=== PATIENT | female | born 1990 | race American Indian/Alaskan Native ===

== ENCOUNTER 2021-05-14 16:03 | Emergency (ER) | payer MEDICAID ==
[2021-05-14 16:28] VITALS: BP 126/66; PULSE 100
[2021-05-14] MEDS ORDERED: Acetaminophen 325 MG Tab PO ONE (16:50)
[2021-05-14] MEDS ORDERED: Benzonatate 100 MG Cap PO ONE (16:50)
[2021-05-14 17:37] LABS: CORONAVIRUS COVID-19 NAA NEGATIVE (NEGATIVE); RESPIRATORY SYNCYTIAL VIR NAA NEGATIVE (NEGATIVE)
[2021-05-14] MEDS ORDERED: Lidocaine 5% Oint 35.44 GM Tube TOP ONE (17:49)
--- NOTE | 2021-05-14 17:56 | EDM.PDOC ---
Scribed by Josefina Paul 05/14/21 4023 for Rogerio Valles MD ED HPI GENERAL MEDICAL PROBLEM - General Chief Complaint: Respiratory Problem Stated Complaint: FRACTURED RIB FROM COUGHING Time Seen by Provider: 05/14/21 16:41 Source of Information: Reports: Patient, RN, RN Notes Reviewed History Limitations: Reports: No Limitations - History of Present Illness INITIAL COMMENTS - FREE TEXT/NARRATIVE: Patient presents to ED by POV stating she has had a cough and runny nose for a week. She coughed so hard she thinks she may broken a rib on the left. She states she is about 4 months and has not had OB care yet. She had some spotting yesterday but it stopped. Denies any related complaints at this time. She plans on seeing an OB doctor next week. Onset: Gradual Duration: Constant Location: Reports: Chest Severity: Severe Improves with: Reports: None Worsens with: Reports: None Associated Symptoms: Reports: No Other Symptoms Left Pain Score (Numeric/FACES): 6 - Related Data Allergies Allergy/AdvReac Type Severity Reaction Status Date / Time No Known Allergies Allergy Verified 05/14/21 16:28 Home Meds: Home Meds . [No Known Home Meds] 05/14/21 [History] Past Medical History - Past Health History Medical/Surgical History: Denies Medical/Surgical History HEENT History: Reports: None Cardiovascular History: Reports: Other (See Below) Other Cardiovascular History: hx gestational htn Respiratory History: Reports: Asthma Gastrointestinal History: Reports: None Genitourinary History: Reports: STD BELT TURNER History: Reports: , Other (See Below) Other BELT TURNER History: hx abnormal pap smear Musculoskeletal History: Reports: None Neurological History: Reports: Seizure Psychiatric History: Reports: Addiction, Anxiety 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 Endocrine/Metabolic History: Reports: None Hematologic History: Reports: Anemia Immunologic History: Reports: None Oncologic (Cancer) History: Reports: None Dermatologic History: Reports: None - Infectious Disease History Infectious Disease History: Reports: None, Chicken Pox - Past Surgical History Head Surgeries/Procedures: Reports: None Social & Family History - Tobacco Use Tobacco Use Status *Q: Current Every Day Tobacco User Years of Tobacco use: 2 Packs/Tins Daily: 0.5 Second Hand Smoke Exposure: No - Caffeine Use Caffeine Use: Reports: None - Recreational Drug Use Recreational Drug Use: No ED ROS GENERAL - Review of Systems Review Of Systems: Comprehensive ROS is negative, except as noted in HPI. ED EXAM, GENERAL - Physical Exam Exam: See Below Exam Limited By: No Limitations General Appearance: Alert, WD/WN, No Apparent Distress Eye Exam: Bilateral Eye: Normal Inspection Ears: Normal External Exam, Normal Canal, Hearing Grossly Normal, Normal TMs Nose: Nasal Drainage (Clear) Throat/Mouth: Normal Inspection, Normal Lips, Normal Teeth, Normal Gums, Normal Oropharynx, Normal Voice, No Airway Compromise Head: Atraumatic, Normocephalic Neck: Normal Inspection, Supple, Non-Tender, Full Range of Motion. No: Lymphadenopathy (L), Lymphadenopathy (R) Respiratory/Chest: No Respiratory Distress, Lungs Clear, Normal Breath Sounds, No Accessory Muscle Use, Other (Harsh dry cough. Tender to palpation overlying left anterior chest wall.) Cardiovascular: Regular Rate, Rhythm GI/Abdominal: Normal Bowel Sounds, Soft, Non-Tender, Other (Gravid). No: Guarding, Rigid, Rebound Back Exam: Normal Inspection. No: CVA Tenderness (L), CVA Tenderness (R) Extremities: Normal Inspection Neurological: Alert, Oriented, No Motor/Sensory Deficits Psychiatric: Normal Mood Skin Exam: Warm, Dry, Intact, Normal Color, No Rash Course - Vital Signs Last Recorded V/S: Last Vital Signs Temp 97.2 F 05/14/21 16:20 Pulse 100 05/14/21 16:20 Resp 16 05/14/21 16:20 BP 126/66 05/14/21 16:20 Pulse Ox 99 05/14/21 16:20 - Orders/Labs/Meds Orders: Active Orders 24 hr Category Date Time Status Heart Tones [RC] ASDIRECTED Care 05/14/21 16:50 Active Labs: Laboratory Tests 05/14/21 Range/Units 16:45 Influenza Type A RNA Negative (NEGATIVE) RSV RNA (INAAT) Negative (NEGATIVE) Influenza Type B RNA Negative (NEGATIVE) SARS-CoV-2 RNA (CATHY) Negative (NEGATIVE) Meds: Medications Discontinued Medications Generic Name Dose Route Start Last Admin Trade Name Freq PRN Reason Stop Dose Admin Acetaminophen 650 mg 05/14/21 16:50 Acetaminophen 325 Mg Tab PO 05/14/21 16:51 NOW ONE Benzonatate 200 mg 05/14/21 16:50 Benzonatate 100 Mg Cap PO 05/14/21 16:51 ONETIME ONE Departure - Departure Time of Disposition: 17:51 Disposition: Home, Self-Care 01 Condition: Good Clinical Impression: Viral URI with cough - Discharge Information *PRESCRIPTION DRUG MONITORING PROGRAM REVIEWED*: No *COPY OF PRESCRIPTION DRUG MONITORING REPORT IN PATIENT NURY: No Instructions: Viral Respiratory Infection, [id number], Cough, Adult, [id number], Care, Costochondritis Forms: ED Department Discharge Additional Instructions: Rx: Tessalon Perles 200mg Rx: Vitamins Apply Lidocaine Ointment to area of rib pain every 4 to 6 hours as needed. Follow up this week at [facility] for care. Sepsis Event Note (ED) - Evaluation Sepsis Screening Result: No Definite Risk - Focused Exam Vital Signs: Vital Signs Temp Pulse Resp BP Pulse Ox 05/14/21 16:20 97.2 F 100 16 126/66 99 - My Orders Last 24 Hours: My Active Orders 05/14/21 16:50 Heart Tones [RC] ASDIRECTED - Assessment/Plan Last 24 Hours: My Active Orders 05/14/21 16:50 Heart Tones [RC] ASDIRECTED I have read and agree with the documentation that has been completed regarding this visit. By signing this record, I attest that the documentation was completed in my physical presence and is an accurate record of the encounter.
== END 2021-05-14 18:05 | disposition home or self-care (01) ==
LOC: DL.ED 16:03
DX: J06.9 Acute upper respiratory infection, unspecified (principal); Z20.822 Contact with and (suspected) exposure to COVID-19
CPT/HCPCS: 0241U; 99283; A9270

== ENCOUNTER 2021-10-10 18:48 | Inpatient (IN) | payer MEDICAID ==
[2021-10-10 19:16] LABS: METHAMPHETAMINES,URINE POSITIVE (NEGATIVE)
[2021-10-10 19:17] LABS: BARBITURATES,URINE NEGATIVE (NEGATIVE); BENZODIAZEPINE,URINE NEGATIVE (NEGATIVE); MDMA (ECSTASY), URINE POSITIVE (NEGATIVE); METHADONE,URINE NEGATIVE (NEGATIVE); OPIATES,URINE NEGATIVE (NEGATIVE); OXYCODONE,URINE NEGATIVE (NEGATIVE); PHENCYCLIDINE,URINE NEGATIVE (NEGATIVE); TCA,URINE NEGATIVE (NEGATIVE)
[2021-10-10] MEDS ORDERED: Penicillin G Potassium 5,000,000 Unit Vial ONE (19:18)
[2021-10-10] MEDS ORDERED: Penicillin G Potassium 5 MILLUNITS in Sodium Chloride 0.9% 100 ML IV ONE (19:22)
[2021-10-10] MEDS ORDERED: Lactated Ringers 1,000 ML IV SCH (19:30)
[2021-10-10] MEDS: Oxytocin/Normal Saline 30 UNIT/500 ML BAG IV SCH ×2 (19:42→22:01)
[2021-10-10] MEDS ORDERED: Benzocaine/Menthol 20%-0.5% Spray 78 GM Cannister TOP PRN (19:55)
[2021-10-10] MEDS ORDERED: Simethicone 80 MG Tab.Chew PO PRN (19:55)
[2021-10-10] MEDS ORDERED: Zolpidem 5 MG Tab PO PRN (19:55)
[2021-10-10] MEDS ORDERED: Misoprostol 400 MCG (4 X 100 MCG TAB) RECTAL PRN (19:55)
[2021-10-10] MEDS ORDERED: Sodium Chloride 0.9% 10 ML Syringe FLUSH PRN (19:55)
[2021-10-10] MEDS ORDERED: Ibuprofen 800 MG Tab PO PRN (19:55)
[2021-10-10] MEDS ORDERED: Carboprost Tromethamine 250 MCG/1 ML Amp IM PRN (19:55)
[2021-10-10] MEDS ORDERED: Tranexamic Acid 1,000 MG in Sodium Chloride 0.9% 100 ML IV PRN (19:55)
[2021-10-10] MEDS ORDERED: Oxytocin 10 Units/1 ML SDV IM PRN (19:55)
[2021-10-10] MEDS ORDERED: Ketorolac 30 MG/ML SDV IVPUSH ONE (20:03)
[2021-10-10] MEDS: Labetalol 100 MG Tab PO SCH (21:52)
[2021-10-11] MEDS: Ibuprofen 800 MG Tab PO PRN ×2 (09:02→17:37)
[2021-10-11] MEDS: Docusate Sodium 100 MG Cap PO PRN ×2 (09:02→21:21)
[2021-10-11] MEDS: Prenatal Multivitamin with Calcium/Folic Acid/Iron Tab PO SCH (09:02)
[2021-10-11] MEDS: Acetaminophen 325 MG Tab PO PRN ×3 (09:03→21:21)
[2021-10-11] MEDS: Labetalol 100 MG Tab PO SCH ×2 (09:03→21:22)
[2021-10-11 18:25] LABS: ANION GAP 12.2 mEq/L (7-13); CHLORIDE,CL 106 mmol/L (98-107); SODIUM,NA 139 mmol/L (136-145)
[2021-10-11 18:27] LABS: AMPHETAMINES,URINE POSITIVE (NEGATIVE)
[2021-10-12] MEDS: Ibuprofen 800 MG Tab PO PRN (02:05)
[2021-10-12] MEDS: Acetaminophen 325 MG Tab PO PRN (03:45)
[2021-10-12 03:56] VITALS: PULSE 75
[2021-10-12] MEDS ORDERED: Ferrous Sulfate 325 MG Tab PO SCH (08:00)
[2021-10-12] MEDS: Labetalol 100 MG Tab PO SCH (08:26)
[2021-10-12] MEDS: Prenatal Multivitamin with Calcium/Folic Acid/Iron Tab PO SCH (08:26)
[2021-10-12] MEDS: Docusate Sodium 100 MG Cap PO PRN (08:28)
[2021-10-12 08:31] VITALS: BP 140/64
[2021-10-12 11:46] LABS: C.TRACHOMATIS BY TMA Negative (Negative); N.GONORRHOEAE BY TMA Negative (Negative)
== END 2021-10-12 15:45 | disposition home or self-care (01) | DRG 806 ==
LOC: DL.OBCHECK 18:48 → DL.OB 19:22 → OBSVTOIN 19:38 → DL.OB 19:38
PROVIDERS: ADMIT Family Medicine; ATTEND Family Medicine
PROC: 10E0XZZ Delivery of Products of Conception, External Approach (ICD-10-PCS; principal; 2021-10-10)
PROC: 10907ZC Drainage of Amniotic Fluid, Therapeutic from Products of Conception, Via Natural or Artificial Opening (ICD-10-PCS; 2021-10-10)
DX: O99.324 Drug use complicating childbirth (principal); O41.03X0 Oligohydramnios, third trimester, not applicable or unspecified; Z37.0 Single live birth; Z3A.35 35 weeks gestation of pregnancy; F19.10 Other psychoactive substance abuse, uncomplicated; O13.3 Gestational [pregnancy-induced] hypertension without significant proteinuria, third trimester; F15.10 Other stimulant abuse, uncomplicated; O99.334 Smoking (tobacco) complicating childbirth; F17.200 Nicotine dependence, unspecified, uncomplicated; O77.0 Labor and delivery complicated by meconium in amniotic fluid; Z20.822 Contact with and (suspected) exposure to COVID-19
CPT/HCPCS: 36415; 59409; 76815; 80053; 80305-QW; 81001; 82565; 82570; 83615; 83880; 84156; 84450; 84460; 84484; 84520; 84550; 85027; 86592; 86762; 86803; 86850; 86900; 86901; 87081; 87340; 87389; 87491; 87591; A9270-GY; J1885; J2540; J2590; J7120; U0002